=== PATIENT | female | born 1980 | race Asian ===

== ENCOUNTER 2018-05-06 17:01 | Observation (INO) | payer OTHER ==
[2018-05-06] MEDS ORDERED: METHYLPREDNISOLONE INJ 125 MG/2 ML SDV IV ONE (17:38)
[2018-05-06] MEDS ORDERED: NORMAL SALINE 1000 ML 1,000 ML IV ONE (17:38)
[2018-05-06] MEDS ORDERED: ONDANSETRON HCL INJ/PF 4 MG/2 ML SDV IV ONE (17:38)
--- NOTE | 2018-05-06 17:44 | ER Document Report ---
ED Allergic Reaction - General Mode of Arrival: Medic Information source: Patient, Relative TRAVEL OUTSIDE OF THE [place] IN LAST 30 DAYS: No - HPI Onset: Just prior to arrival Onset/Duration: Sudden Quality of pain: Burning Pain Level: 3 Identified cause: Yes Skin rash / itching: "Hives" Swelling: Face, Hands Associated symptoms: Dizziness Recent Illness: Vomiting Similar symptoms previously: No Recently seen / treated by doctor: No <ASAEL MCKAY - Last Filed: 05/06/18 19:15> <BIB BARON - Last Filed: 05/06/18 20:05> <ANN TELLO - Last Filed: 05/06/18 22:44> - General Chief Complaint: Allergic Reaction Stated Complaint: POSSIBLE ALLERGIC REACTION Time Seen by Provider: 05/06/18 17:21 Notes: Patient states that she was gardening and was bit by multiple aunts to bilateral hands around 315. Patient states that she developed a rash that continued to worsen over a very brief period of time. Patient states she became nauseous and vomited 3 times. Patient was given Benadryl, epinephrine Pepcid and Zofran per EMS. Patient states she is feeling much better after the medications. Patient denies any difficulty breathing swallowing or any tongue or throat swelling. Patient does complain of bilateral hand swelling and rash. (ASAEL MCKAY) - Related Data Allergies/Adverse Reactions: amoxicillin [From Augmentin] Allergy (Verified 05/06/18 17:38) clavulanic acid [From Augmentin] Allergy (Verified 05/06/18 17:38) metoclopramide [From Reglan] Allergy (Verified 05/06/18 17:38) prochlorperazine [From Compazine] Allergy (Verified 05/06/18 17:38) promethazine [From Phenergan] Allergy (Verified 05/06/18 17:38) Past Medical History - General Information source: Patient - Social History Smoking Status: Former Smoker Chew tobacco use (# tins/day): No Frequency of alcohol use: None Drug Abuse: None Occupation: Active duty Lives with: Spouse/Significant other Family History: Reviewed & Not Pertinent Patient has suicidal ideation: No Patient has homicidal ideation: No - Medical History Medical History: Negative Renal/ Medical History: Denies: Hx Peritoneal Dialysis Past Surgical History: Reports: Hx Gynecologic Surgery, Other - Eye surgery, sinus surgery <ASAEL MCKAY - Last Filed: 05/06/18 19:15> Review of Systems - Review of Systems Constitutional: No symptoms reported. denies: Fever EENT: No symptoms reported. denies: Throat pain, Difficulty swallowing, Throat swelling Cardiovascular: Dizziness, Lightheaded Respiratory: No symptoms reported. denies: Cough, Short of breath Gastrointestinal: Nausea, Vomiting. denies: Abdominal pain Genitourinary: No symptoms reported Female Genitourinary: No symptoms reported Musculoskeletal: No symptoms reported Skin: Rash Hematologic/Lymphatic: No symptoms reported Neurological/Psychological: Headaches <ASAEL MCKAY - Last Filed: 05/06/18 19:15> Physical Exam - General General appearance: Appears well, Alert In distress: None - HEENT Head: Normocephalic, Atraumatic Eyes: Periorbital edema Nasal: Normal Mouth/Lips: Normal. No: Angioedema Mucous membranes: Normal Pharynx: Normal. No: Tonsillar hypertrophy, Uvular edema, Potential airway comprom. Neck: Normal, Supple. No: Lymphadenopathy - Respiratory Respiratory status: No respiratory distress Chest status: Nontender Breath sounds: Normal. No: Rales, Rhonchi, Stridor, Wheezing Chest palpation: Normal - Cardiovascular Rhythm: Regular Heart sounds: S1 appreciated, S2 appreciated Murmur: No - Abdominal Inspection: Normal Distension: No distension - Back Back: Normal, Nontender - Extremities General upper extremity: Edema - Bilateral hands, Normal ROM General lower extremity: Normal inspection, Normal ROM - Neurological Neuro grossly intact: Yes Cognition: Normal Sherine Coma Scale Eye Opening: Spontaneous Sherine Coma Scale Verbal: Oriented Filer Coma Scale Motor: Obeys Commands Sherine Coma Scale Total: 15 - Psychological Associated symptoms: Normal affect, Normal mood - Skin Skin Temperature: Warm Skin Moisture: Dry Skin Color: Erythema - Urticarial rash to trunk <WOODYASAEL Beck - Last Filed: 05/06/18 19:15> - Vital signs Vitals: Temp Pulse Resp BP Pulse Ox 98.3 F 84 16 110/67 96 05/06/18 17:05 05/06/18 17:05 05/06/18 17:05 05/06/18 17:05 05/06/18 17:05 Course <WOODYASAEL - Last Filed: 05/06/18 19:15> <BIB BARON - Last Filed: 05/06/18 20:05> <ANN TELLO - Last Filed: 05/06/18 22:44> - Re-evaluation Re-evalutation: 05/06/18 18:06 Patient's blood pressure 95/55, RN encouraged to start second liter of IV fluids. 05/06/18 18:38 Patient continues to receive her second liter of IV fluid, blood pressure 85/49 , third liter will be initiated as well as additional dose of epinephrine. Patient states that she is tired and that her hand feels swollen but otherwise denies any difficulty breathing, pruritus or difficulty swallowing. 05/06/18 18:[address] Tello, Dr. Tello to bedside for examination. 05/06/18 19:00 Dr. Tello advises observing patient for the next 30 minutes, if no improvement in blood pressure advises starting epinephrine drip, and subsequent hospital admission. 05/06/18 19:16 Bedside report and handoff given to Bib TUCKER (ASAEL MCKAY) 05/06/18 20:05 Patient has not had hypotension again after second epinephrine dose. She still has urticaria, mainly on her back, she still has slight soft tissue swelling of the right hand, mild puffiness of the eyes, oropharynx is unremarkable, no wheezing or signs of distress. Discussed with patient, because of multiple epinephrine doses to treat anaphylactic shock recommendation was to observe the patient in the hospital tonight. Discussed with Dr. Tello. Spoke with Dr. Goodrich, internal medicine, patient will be admitted to telemetry observation. Patient states full agreement with this plan. (BIB BARON) 05/06/18 22:43 I did personally see and examine this patient who sustained multiple fire ant bites to the bilateral hands, then developed swelling, abdominal pain and vomiting, urticaria, patient required 2 doses of epinephrine, her hypotension has improved but she continues to have significant urticaria and some swelling of the eyelids. Patient will require admission to hospital for further observation for her anaphylactic shock. No evidence of impending airway collapse, no airway swelling, no difficulty breathing. (ANN TELLO) - Vital Signs Vital signs: Temp Pulse Resp BP Pulse Ox 98.3 F 84 19 104/66 96 08/18/18 17:07 05/06/18 21:23 05/06/18 21:32 05/06/18 21:32 05/06/18 21:32 Discharge <ASAEL MCKAY - Last Filed: 05/06/18 19:15> - Discharge Admitting Provider: Hospitalist Unit Admitted: Telemetry <BIB BARON - Last Filed: 05/06/18 20:05> <ANN TELLO - Last Filed: 05/06/18 22:44> - Discharge Clinical Impression: Anaphylactic shock, Swelling of right hand, Urticaria Bite, fire ant Qualifiers: Encounter type: initial encounter Injury intent: accidental or unintentional Qualified Code(s): T63.421A - Toxic effect of venom of ants, accidental ( unintentional), initial encounter Condition: Good Disposition: ADMITTED OBSERVATION
[2018-05-06] MEDS ORDERED: ACETAMINOPHEN 325 MG TABLET PO ONE (18:05)
[2018-05-06] MEDS ORDERED: EPINEPHRINE INJ/PF 1 MG/1 ML AMPULE IM ONE (18:29)
[2018-05-06] MEDS: NORMAL SALINE 1000 ML 1,000 ML IV PRN ×2 (18:38→23:19)
[2018-05-06] MEDS ORDERED: ACETAMINOPHEN 325 MG TABLET PO PRN (20:06)
[2018-05-06] MEDS ORDERED: MAGNESIUM HYDROXIDE SUSP 30 ML UDCUP PO PRN (20:06)
[2018-05-06] MEDS ORDERED: FAMOTIDINE INJ/PF 20 MG/2 ML SDV IV ONE ×2 (20:06→23:12)
[2018-05-06] MEDS ORDERED: IPRATROPIUM/ALBUTEROL 0.5-2.5 MG/3 ML AMPUL NEB PRN (20:06)
[2018-05-06] MEDS ORDERED: EPINEPHRINE INJ/PF 1 MG/1 ML AMPULE IM PRN (20:06)
[2018-05-06] MEDS ORDERED: NORMAL SALINE 1000 ML 1,000 ML IV SCH (20:15)
[2018-05-06] MEDS: HEPARIN SOD (PORCINE) 5,000 UNIT/ML 1 ML SYRINGE SUBCUT SCH (23:34)
[2018-05-07] MEDS ORDERED: BUTALB/ACETAMINOPHEN/CAFFEINE 1 TAB EACH PO ONE (01:00)
[2018-05-07] MEDS ORDERED: BUTALB/ACETAMINOPHEN/CAFFEINE 1 TAB EACH ONE (02:01)
[2018-05-07] MEDS: NORMAL SALINE 1000 ML 1,000 ML IV PRN (03:28)
--- NOTE | 2018-05-07 05:33 | PDOC H&P ---
History of Present Illness Admission Date/PCP: 05/06/18 20:23 Patient complains of: Anaphylaxis History of Present Illness: VIRA OCONNELL is a 37 year old female without past medical history presents with anaphylactic shock following multiple red ant stings. Rash rapidly developed followed by nausea and vomiting 3, she received Benadryl, epinephrine, Pepcid and Zofran via EMS. In the emergency room she develops an episode of hypotension requiring another dose of epinephrine. She denies shortness of breath, stridor or drooling. She denies previous episode and is referred to the hospitalist for admission. Past Medical History Medical History: None Psychiatric Medical History: Denies: Depression Past Surgical History Past Surgical History: Reports: Other - Eye surgery, sinus surgery Social History Information Source: Patient Lives with: Spouse/Significant other Smoking Status: Former Smoker Frequency of Alcohol Use: None Hx Recreational Drug Use: No Drugs: None Hx Prescription Drug Abuse: No - Advance Directive Resuscitation Status: Full Code Family History Family History: None Parental Family History Reviewed: Yes Children Family History Reviewed: Yes Sibling(s) Family History Reviewed.: Yes Medication/Allergy Allergies/Adverse Reactions: amoxicillin [From Augmentin] Allergy (Verified 05/06/18 17:38) clavulanic acid [From Augmentin] Allergy (Verified 05/06/18 17:38) metoclopramide [From Reglan] Allergy (Verified 05/06/18 17:38) prochlorperazine [From Compazine] Allergy (Verified 05/06/18 17:38) promethazine [From Phenergan] Allergy (Verified 05/06/18 17:38) Review of Systems Constitutional: ABSENT: chills, fever(s), headache(s), weight gain, weight loss Eyes: ABSENT: visual disturbances Ears: ABSENT: hearing changes Cardiovascular: ABSENT: chest pain, dyspnea on exertion, edema, orthropnea, palpitations Respiratory: ABSENT: cough, hemoptysis Gastrointestinal: ABSENT: abdominal pain, constipation, diarrhea, hematemesis, hematochezia, nausea, vomiting Genitourinary: ABSENT: dysuria, hematuria Musculoskeletal: ABSENT: joint swelling Integumentary: ABSENT: rash, wounds Neurological: ABSENT: abnormal gait, abnormal speech, confusion, dizziness, focal weakness, syncope Psychiatric: ABSENT: anxiety, depression, homidical ideation, suicidal ideation Endocrine: ABSENT: cold intolerance, heat intolerance, polydipsia, polyuria Hematologic/Lymphatic: ABSENT: easy bleeding, easy bruising Physical Exam Vital Signs: Temp Pulse Resp BP Pulse Ox 98.2 F 60 17 95/52 L 97 05/06/18 23:01 05/07/18 02:00 05/06/18 23:01 05/06/18 23:01 05/06/18 23:01 Intake & Output 05/05/18 05/06/18 05/07/18 11:59 11:59 11:59 Intake Total 1000 Balance 1000 Weight 85.1 kg General appearance: PRESENT: cooperative, mild distress, well-developed, well- nourished Head exam: PRESENT: atraumatic, normocephalic Eye exam: PRESENT: conjunctiva pink, EOMI, PERRLA. ABSENT: scleral icterus Ear exam: PRESENT: normal external ear exam Mouth exam: PRESENT: moist, tongue midline Neck exam: ABSENT: carotid bruit, JVD, lymphadenopathy, thyromegaly Respiratory exam: PRESENT: clear to auscultation angie. ABSENT: rales, rhonchi, wheezes Cardiovascular exam: PRESENT: RRR. ABSENT: diastolic murmur, rubs, systolic murmur Pulses: PRESENT: normal dorsalis pedis pul Vascular exam: PRESENT: normal capillary refill GI/Abdominal exam: PRESENT: normal bowel sounds, soft. ABSENT: distended, guarding, mass, organolmegaly, rebound, tenderness Rectal exam: PRESENT: deferred Extremities exam: PRESENT: full ROM. ABSENT: calf tenderness, clubbing, pedal edema Neurological exam: PRESENT: alert, awake, oriented to person, oriented to place , oriented to time, oriented to situation, CN II-XII grossly intact. ABSENT: motor sensory deficit Psychiatric exam: PRESENT: appropriate affect, normal mood. ABSENT: homicidal ideation, suicidal ideation Skin exam: PRESENT: erythema, intact, rash - Several areas of the hand and forearm bilaterally with local areas of pallor surrounded by erythema. No pustules or vesicles., warm. ABSENT: cyanosis Assessment & Plan - Diagnosis (1) Anaphylactic shock Is this a current diagnosis for this admission?: Yes Plan: Secondary to fire ant sting, Benadryl, Pepcid, epinephrine as needed anaphylactic symptom (2) Bite, fire ant Qualifiers: Encounter type: initial encounter Injury intent: accidental or unintentional Qualified Code(s): T63.421A - Toxic effect of venom of ants, accidental (unintentional), initial encounter Is this a current diagnosis for this admission?: Yes Plan: Supportive care, education (3) Swelling of right hand Is this a current diagnosis for this admission?: Yes Plan: Supportive care analgesia as needed - Time Time Spent: 30 to 50 Minutes - Inpatient Certification Medical Necessity: Need Close Monitoring Due to Risk of Patient Decompensation
[2018-05-07] MEDS: HEPARIN SOD (PORCINE) 5,000 UNIT/ML 1 ML SYRINGE SUBCUT SCH (06:45)
[2018-05-07] MEDS ORDERED: DIPHENHYDRAMINE HCL 25 MG CAPSULE PO PRN (08:22)
[2018-05-07] MEDS ORDERED: FAMOTIDINE 20 MG TABLET PO SCH (10:00)
[2018-05-07 13:36] VITALS: BP 95/52
--- NOTE | 2018-05-10 11:23 | PDOC DISCHARGE SUMMARY ---
General - Admit/Disc Date/PCP Admission Date/Primary Care Provider: 05/06/18 20:23 Discharge Date: 05/07/18 - Discharge Diagnosis (1) Anaphylactic shock Is this a current diagnosis for this admission?: Yes (2) Bite, fire ant Is this a current diagnosis for this admission?: Yes (3) Swelling of right hand Is this a current diagnosis for this admission?: Yes (4) Urticaria Is this a current diagnosis for this admission?: Yes - Additional Information Resuscitation Status: Full Code Discharge Diet: Regular Discharge Activity: Activity As Tolerated Prescriptions: Diphenhydramine HCl [Benadryl 25 mg Capsule] 25 mg PO Q8HP PRN #30 capsule PRN Reason: Epinephrine [Epipen] 0.3 mg IJ PRN PRN #2 auto.injct PRN Reason: Severe allergic reaction Famotidine [Pepcid 20 mg Tablet] 20 mg PO Q12 #60 tablet Hydrocortisone/Oatmeal/Aloe/E [Hydrocortisone 1% Cream] 1 applic TP TIDP PRN #1 tube PRN Reason: Itching Prednisone 10 mg PO ASDIR PRN #1 tab.ds.pk PRN Reason: Home Medications: Acetaminophen [Tylenol 325 mg Tablet] 650 mg PO Q4HP PRN tablet 05/07/18 Diphenhydramine HCl [Benadryl 25 mg Capsule] 25 mg PO Q8HP PRN #30 capsule 05/07 Epinephrine [Epipen] 0.3 mg IJ PRN PRN #2 auto.injct 05/07/18 Famotidine [Pepcid 20 mg Tablet] 20 mg PO Q12 #60 tablet 05/07/18 Hydrocortisone/Oatmeal/Aloe/E [Hydrocortisone 1% Cream] 1 applic TP TIDP PRN #1 tube 05/07/18 Norethindrone-E.estradiol-Iron [Loestrin Fe 1-20 Tablet] 1 tab PO DAILY Prednisone 10 mg PO ASDIR PRN #1 tab.ds.pk 05/07/18 History of Present Illness History of Present Illness: Per H&P by Hedy Goodrich: VIRA OCONNELL is a 37 year old female without past medical history presents with anaphylactic shock following multiple red ant stings. Rash rapidly developed followed by nausea and vomiting 3, she received Benadryl , epinephrine, Pepcid and Zofran via EMS. In the emergency room she develops an episode of hypotension requiring another dose of epinephrine. She denies shortness of breath, stridor or drooling. She denies previous episode and is referred to the hospitalist for admission. Hospital Course Hospital Course: The patient was admitted with anaphylactic reaction to ant bites. She received Benadryl, Pepcid, epinephrine and Solu-medrol initially with improvement in symptoms and was admitted for observation. She did require a second dose of epinephrine overnight for hypotension. The patient continues to have slight edema and discomfort to bites on her right hand, but generalized urticaria and pruritus, nausea and vomiting have resolved. She has been normotensive x 12 hours. At time of discharge, the patient is instable condition. She is provided prescriptions for epi pen x 2, benadryl, pepcid, steroid taper, and hydocortisone cream. She and rudy are instructed on use of the epi pen w/ concurrent initiation of EMS services, and warning signs for return to ED for evaluation. Her pharmacy was contacted to ensure that the epi pens were in- stock prior to her discharge. She is advised to follow up with her primary carer provider within 1 week and to return to the Emergency Department as needed. Physical Exam Vital Signs: Temp Pulse Resp BP Pulse Ox 98.6 F 63 16 95/52 L 100 05/07/18 13:34 05/07/18 13:34 05/07/18 13:34 05/07/18 13:34 05/07/18 13:34 General appearance: PRESENT: no acute distress, well-developed, well-nourished Head exam: PRESENT: atraumatic, normocephalic Eye exam: PRESENT: conjunctiva pink, EOMI, PERRLA. ABSENT: scleral icterus Ear exam: PRESENT: normal external ear exam Mouth exam: PRESENT: moist, tongue midline Neck exam: ABSENT: carotid bruit, JVD, lymphadenopathy, thyromegaly Respiratory exam: PRESENT: clear to auscultation angie. ABSENT: rales, rhonchi, wheezes Cardiovascular exam: PRESENT: RRR. ABSENT: diastolic murmur, rubs, systolic murmur Pulses: PRESENT: normal dorsalis pedis pul Vascular exam: PRESENT: normal capillary refill GI/Abdominal exam: PRESENT: normal bowel sounds, soft. ABSENT: distended, guarding, mass, organolmegaly, rebound, tenderness Rectal exam: PRESENT: deferred Extremities exam: PRESENT: full ROM. ABSENT: calf tenderness, clubbing, pedal edema Neurological exam: PRESENT: alert, awake, oriented to person, oriented to place , oriented to time, oriented to situation, CN II-XII grossly intact. ABSENT: motor sensory deficit Psychiatric exam: PRESENT: appropriate affect, normal mood. ABSENT: homicidal ideation, suicidal ideation Skin exam: PRESENT: dry, intact, warm. ABSENT: cyanosis, rash Qualifiers - * PATIENT BEING DISCHARGED WITH ANY OF THE FOLLOWING DIAGNOSIS: No Plan Discharge Plan: Discharge to home. Follow up with Primary Care Provider within 1 week. Return to ED as needed. Time Spent: Less than 30 Minutes
== END 2018-05-07 13:35 | disposition home or self-care (01) ==
LOC: ER 17:01 → EH 20:23 → 5 22:55
PROVIDERS: ADMIT Internal Medicine; ATTEND Internal Medicine
DX: T63.421A Toxic effect of venom of ants, accidental (unintentional), initial encounter (principal); T78.2XXA Anaphylactic shock, unspecified, initial encounter; L50.9 Urticaria, unspecified; M79.89 Other specified soft tissue disorders; Z87.891 Personal history of nicotine dependence; Z88.0 Allergy status to penicillin; Z88.8 Allergy status to other drugs, medicaments and biological substances
CPT/HCPCS: 99284; 96372; 96361; 96374; 96375; G0378 ×3; J3490; J0171; J2930; J2405; J7030 ×2; S0028